=== PATIENT | male | born 1970 | race Hispanic/Latino ===

== ENCOUNTER 2018-03-18 19:01 | Emergency (ER) | payer MEDICARE, OTHER ==
[~2018-03-18 19:01] MED LIST: Iopamidol-M 200 41% 10 ML VIAL FS ONE
[2018-03-18 19:29] LABS: #Basophils 0.1 thou/uL (0.0-0.2); #Eosinphils 0.1 thou/uL (0.0-0.7); #Lymphocytes 3.3 thou/uL (1.20-3.40); #Monocytes 0.9 thou/uL (0.11-0.59); #Neutrophils 14.5 thou/uL (1.40-6.50); %Basophils 0.6 % (0.0-1.0); %Eosinophils 0.5 % (0.0-10.0); %Lymphocytes 17.3 % (21.0-51.0); %Monocytes 4.7 % (0.0-10.0); %Neutrophils 76.8 % (42.0-75.0); Hemoglobin 17.7 g/dL (14.0-18.0); Mean Corpuscular HGB CONC 32.3 g/dL (32.0-36.0); Mean Corpuscular Hemoglobin 31.2 pg (27.0-31.0); Mean Corpuscular Volume 96.7 fL (78.0-98.0); Mean Platelet Volume 9.5 fL (7.4-10.4); Platelet Count 138 thou/uL (130-400); RBC Distribution Width 13.1 % (11.5-14.5); Red Blood Cell (RBC) Count 5.66 mill/uL (4.70-6.10); White Blood Cell (WBC) Count 18.9 thou/uL (4.8-10.8)
[2018-03-18] MEDS ORDERED: Ondansetron PF 4 MG/2 ML Vial ONE (19:29)
[2018-03-18] MEDS ORDERED: Famotidine/PF 20 mg/2ml Vial ONE (19:38)
[2018-03-18] MEDS ORDERED: methylPREDNISolone Sod Succ/PF 125 MG/2 ML VIAL ONE (19:38)
[2018-03-18] MEDS ORDERED: diphenhydrAMINE 50 MG/ML VIAL ONE (19:38)
[2018-03-18 19:48] LABS: ALT (SGPT) 35 U/L (8-55); AST (SGOT) 55 U/L (5-34); Albumin 4.2 g/dL (3.5-5.0); Alkaline Phosphatase 70 U/L (40-150); Anion Gap 15 mmol/L (10-20); BUN (Urea Nitrogen) 17 mg/dL (8.9-20.6); Bilirubin, Total 0.7 mg/dL (0.2-1.2); Calc. Creatinine Clearance 0 mL/min (70-130); Calcium 8.9 mg/dL (7.8-10.44); Carbon Dioxide 19 mmol/L (22-29); Chloride 103 mmol/L (98-107); Estimated GFR-MDRD 64; Globulin 2.9 g/dL (2.4-3.5); Glucose 167 mg/dL (70-105); Lipase 21 U/L (8-78); Protein, Total 7.1 g/dL (6.0-8.3); Sodium 133 mmol/L (136-145)
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
[2018-03-18] MEDS ORDERED: Morphine 2 MG/ML SYRINGE ONE (21:07)
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
== END 2018-03-18 22:32 | disposition home or self-care (01) ==
LOC: ERS 19:01
DX: S32.019A Unspecified fracture of first lumbar vertebra, initial encounter for closed fracture (principal); V43.62XA Car passenger injured in collision with other type car in traffic accident, initial encounter
CPT/HCPCS: 36415; 70450; 71260; 72125; 74177; 80053; 83690; 85025; 86850; 86900; 86901; 96374; 96375; G0390; J1200; J2270; J2405; J2930; S0028

== ENCOUNTER 2018-12-12 13:44 | Inpatient (IN) | payer MEDICARE, OTHER, SELFPAY ==
--- NOTE | 2018-12-12 14:06 | RAD ---
AP CHEST: Date: 12/12/18 HISTORY: Chest pain. FINDINGS: Lungs appear clear of infiltrate. No evidence of vascular congestion or edema. Heart size is within n ormal range. Postop sternotomy changes noted. Mild interstitial prominence may be chronic. No signifi cant effusion. IMPRESSION: No acute abnormality identified. POS: [facility]
[2018-12-12 14:29] LABS: #Basophils 0.1 thou/uL (0.0-0.2); #Eosinphils 0.1 thou/uL (0.0-0.7); #Monocytes 0.8 thou/uL (0.11-0.59); %Basophils 1.3 % (0.0-1.0); %Eosinophils 0.5 % (0.0-10.0); %Neutrophils 60.2 % (42.0-75.0); Hemoglobin 17.8 g/dL (14.0-18.0); Mean Corpuscular HGB CONC 33.2 g/dL (32.0-36.0); Mean Corpuscular Hemoglobin 31.2 pg (27.0-31.0); Mean Corpuscular Volume 94.2 fL (78.0-98.0); Mean Platelet Volume 9.6 fL (7.4-10.4); Platelet Count 157 thou/uL (130-400)
[2018-12-12 14:52] LABS: ALT (SGPT) 17 U/L (8-55); AST (SGOT) 22 U/L (5-34); Albumin 4.2 g/dL (3.5-5.0); Alkaline Phosphatase 69 U/L (40-150); Anion Gap 12 mmol/L (10-20); BUN (Urea Nitrogen) 14 mg/dL (8.9-20.6); Bilirubin, Total 0.7 mg/dL (0.2-1.2); Calc. Creatinine Clearance 0 mL/min (70-130); Calcium 9.2 mg/dL (7.8-10.44); Carbon Dioxide 24 mmol/L (22-29); Chloride 108 mmol/L (98-107); Estimated GFR-MDRD Greater than 90; Globulin 2.5 g/dL (2.4-3.5); Glucose 93 mg/dL (70-105); Potassium 4.5 mmol/L (3.5-5.1); Protein, Total 6.7 g/dL (6.0-8.3); Sodium 139 mmol/L (136-145)
[2018-12-12 18:17] LABS: Troponin I Less than 0.010 ng/mL (< 0.028)
[2018-12-12] MEDS ORDERED: Ondansetron ODT 4 MG TAB SL PRN (19:48)
[2018-12-12] MEDS ORDERED: Ondansetron PF 4 MG/2 ML Vial IVP PRN (19:48)
[2018-12-12 19:49] VITALS: BMI 19.0
[2018-12-12] MEDS ORDERED: Aspirin 325 MG TAB PO SCH (20:00)
[2018-12-12] MEDS ORDERED: Acetaminophen 325 MG TAB PO PRN (20:33)
[2018-12-12] MEDS ORDERED: Nitroglycerin 0.4 MG TAB (25 Tab Bottle) PO PRN (20:33)
[2018-12-12 21:01] LABS: Troponin I Less than 0.010 ng/mL (< 0.028)
[2018-12-12] MEDS: Famotidine 20 MG TAB PO SCH (21:57)
--- NOTE | 2018-12-13 02:45 | HP ---
PRIMARY CARE PHYSICIAN: in [place]. CHIEF COMPLAINT: Left-sided chest pain and left arm numbness. HISTORY OF PRESENT ILLNESS: Mr. Christopher is a pleasant 48-year-old man with a history of CHF, who had presented to [facility] earlier today after he experienced some left-sided chest pain that had radiated down the left arm. He had also described this pain as a numbness, tingling and pins and needles down left arm. He states that the symptoms started around 6:00 a.m. this morning and had woken out of a deep sleep and it lasted roughly 1 hour. He had denied any fever, chills, any headache, blurred vision, dizziness, any palpitations, shortness of breath, abdominal pain, nausea, vomiting, or any change in stool. He states that these symptoms have been on and off for the last 2 weeks and states that it usually happens when he is sleeping. His serial troponins were found to be negative x3 and portable chest x-ray was clear. His blood pressure and other vital signs remained stable. He states that he is a very active man and he states that he is not on any home medications. He is supposed to take furosemide at home for his heart failure. However, he states he does not take this, labs indicated slightly bumped BNP of 216. REVIEW OF SYSTEMS: All other systems reviewed and found to be negative unless mentioned in the HPI. PAST MEDICAL HISTORY: Congestive heart failure. PAST SURGICAL HISTORY: Open heart surgery as a child. PSYCHIATRIC HISTORY: None. SOCIAL HISTORY: The patient denies any alcohol, tobacco, or illicit drug use. ALLERGIES: CODEINE AND SHELLFISH. CURRENT HOME MEDICATIONS: None. PHYSICAL EXAMINATION: VITAL SIGNS: BP 125/69, pulse 55, respirations 17, temperature 97.5 degrees Fahrenheit, O2 saturations 96% on room air. GENERAL: The patient is awake, alert, and oriented x3. He is currently lying comfortably in bed and in no acute distress. HEENT: Atraumatic, normocephalic. Pupils are round and reactive to light. Extraocular muscles intact. Moist mucous membranes noted. CARDIOVASCULAR: Positive S1 and S2. Regular rate and rhythm. No murmur auscultated. RESPIRATORY: Clear to auscultation bilaterally. No wheezes, rales, or rhonchi. ABDOMEN: Soft, nontender. Bowel sounds present. MUSCULOSKELETAL: Strength 5+ bilaterally in upper and lower extremities. Moves all extremities equal. No edema noted. NEUROLOGIC: Cranial nerves 2 through 12 grossly intact. No focal deficits noted. Speech intact and normal. Gait not assessed. SKIN: Warm, dry, and intact. No rashes. No ulceration noted. Surgical scar noted on the anterior chest, which is well healed. PSYCHIATRIC: Good mood and affect. LABORATORY DATA: WBC 10.0, RBC 5.70, hemoglobin 17.8, platelet 157. Sodium 139, potassium 4.5, anion gap 12, BUN 14, creatinine 0.84, estimated GFR greater than 90. Troponin less than 0.010 x3. BNP 216.0. DIAGNOSTIC IMAGING: Portable chest x-ray showed no acute abnormality identified. ASSESSMENT AND PLAN: 1. Atypical chest pain. The patient will rule out acute coronary syndrome, serial troponins found to be negative x3, and echocardiogram and cardiac stress test will be ordered for the morning. BNP is slightly bumped at 216. 2. History of congenital heart defect status post open heart surgery as a child, currently stable. 3. Deep venous thrombosis and gastrointestinal prophylaxis. 4. Code status is full code. DISPOSITION: Pending further workup and clinical findings. Job ID: [id number]
[2018-12-13 05:49] LABS: Anion Gap 10 mmol/L (10-20); BUN (Urea Nitrogen) 17 mg/dL (8.9-20.6); Calc. Creatinine Clearance 76 mL/min (70-130); Calcium 9.2 mg/dL (7.8-10.44); Carbon Dioxide 26 mmol/L (22-29); Chloride 107 mmol/L (98-107); Cholesterol 145 mg/dl (< 200 Desired); Estimated GFR-MDRD Greater than 90; Glucose 88 mg/dL (70-105); HDL Cholesterol 36 mg/dL (>60 Neg Risk); LDL Cholesterol, Calculated 91 mg/dL; Potassium 3.6 mmol/L (3.5-5.1); Sodium 139 mmol/L (136-145); Triglycerides 92 mg/dL (Less than 150)
[2018-12-13 05:55] LABS: Band 2 % (5-11); Lymphocytes 52 % (21-51); MDiff Complete? YES; Mean Corpuscular HGB CONC 32.9 g/dL (32.0-36.0); Mean Corpuscular Hemoglobin 31.4 pg (27.0-31.0); Mean Corpuscular Volume 95.4 fL (78.0-98.0); Mean Platelet Volume 9.9 fL (7.4-10.4); Monocytes 10 % (0-10); Neutrophil 36 % (42-75); Platelet Count 156 thou/uL (130-400); White Blood Cell (WBC) Count 9.6 thou/uL (4.8-10.8)
[2018-12-13] MEDS: Famotidine 20 MG TAB PO SCH (08:09)
[2018-12-13] MEDS ORDERED: Enoxaparin Sodium 40 MG/0.4 ML SYRINGE SC SCH (09:00)
[2018-12-13] MEDS ORDERED: Regadenoson 0.4 MG/5 ML SYRINGE ONE (09:57)
--- NOTE | 2018-12-13 12:04 | NM ---
EXAM: CARDIAC SPECT HISTORY: Chest pain, CHF TECHNIQUE: A myocardial perfusion scan was performed using the single isotope 1 day protocol with ricki hnetium 99m sestamibi. [10 mCi] was injected intravenously for the rest exam followed by 30 mCi for the stress study. Pharmacologic stress with Lexiscan was monitored and interpreted by Dr. Trejo FINDINGS: A large fixed defect is seen in the anteroseptal wall. No reversible defects are seen. Gated SPECT LVEF: 46% Wall motion exam: Anteroseptal wall hypokinesis IMPRESSION: 1. No evidence of reversible ischemia. 2. Anteroseptal wall scar.
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
--- NOTE | 2018-12-13 19:05 | PDOC.EVN ---
Event Note - Event Note Event Note: Mr. Christopher was seen together with Yesy Huff PA-C. He had some chest pain earlier, today as well as left arm pain. This has since resolved. He had some evidence on bradycardia on telemetry. Due to his history of congenital heart disease, and surgery for transposition of the great vessels, he is being transferred to [facility] for further evaluation. Accepting Physician is Dr. Khan.
[2018-12-13 20:14] VITALS: BP 115/72; TEMP 98.2
--- NOTE | 2018-12-13 21:26 | CON ---
DATE OF CONSULTATION: 12/13/2018 INDICATION FOR CONSULTATION: A 48-year-old gentleman, who complained of some left-sided chest discomfort, which he described as sharp sticking pains and also some left arm numbness. HISTORY OF PRESENT ILLNESS: This is a very pleasant 48-year-old gentleman, who has a history of congestive heart failure, which is mainly right-sided, presented to the emergency room yesterday after he complained of some sharp sticking pains, which woke him from sleep and some left-sided numbness. He said his arm was numb. He denied any tingling type sensations. He did not have any significant chest discomfort for what he tells me. He has not had any other complaints of nausea, vomiting, or shortness of breath. His cardiac enzymes are negative. He has a history of congenital heart disease, most likely transposition which has been repaired. His last echocardiogram was in 2017, which showed ejection fraction 50% to 55% with dilated right ventricle and right atrium with [id number] tricuspid valve regurgitation, bicuspid aortic valve, volume overload what appeared to be a transposition which had been repaired. He does apparently have a history of hypertension and according to the EKG also looks that way. When he was in the emergency room, he did have some bradycardia with heart rates in the 30s and appeared to be junctional rhythm, other times sinus at this time. He is in a sinus rhythm with a heart rate in the 60s and he is asymptomatic. He said his chest discomfort has resolved. The sticking sharp pains have resolved and also the numbness in his arm has resolved. His chest x-ray is unremarkable, and the cardiac enzymes are negative. EKG is noted for the junctional rhythm and also occasionally sinus rhythm, but heart rates in the 30s. PAST MEDICAL HISTORY: Significant for the congenital heart disease and congestive heart failure. He has had repair of the transposition when he was a child. ALLERGIES: NOT TO MEDICATIONS EXCEPT FOR CODEINE. HE SAYS HE HAS INTOLERANCE TO CODEINE. HE ALSO HAS ALLERGIES TO SHELLFISH. MEDICATIONS: At home he said include pain pills due to back problems and also Lasix. REVIEW OF SYSTEMS: He denied any other complaints. He lives alone. He does not work. He is disabled. I guess based on his heart function, he has not been taking any medicines at home and apparently follow up with Dr. Lopez several months ago and said that he was doing okay at that time. A 12-point review of systems unremarkable except as noted in the history of present illness. PHYSICAL EXAMINATION: GENERAL: Reveals a well-developed, well-nourished gentleman, who is in no acute distress at this time. VITAL SIGNS: Blood pressure is 120/71, heart rate is 62 and regular, and respiratory rate 14. He is afebrile. HEENT: Shows head to be normocephalic and atraumatic. Carotid pulses are present. There are no bruits. CHEST: Clear to auscultation without rales, rhonchi, or wheezing. CARDIOVASCULAR: Reveals a regular rate and rhythm. He has a systolic murmur at the lower sternal border and also at the apex compatible with tricuspid and mitral valve regurgitation. ABDOMEN: Soft and nontender. Positive bowel sounds are present. EXTREMITIES: Show no clubbing, cyanosis, or edema. Pedal pulses are present. NEUROLOGIC: The patient appears to be intact. SKIN: Warm and dry. LABORATORY DATA: Shows a hemoglobin of 16, hematocrit was 48.6, WBC of 9.6, platelet count of 156,000. Potassium is 3.6, sodium 139, BUN is 17, creatinine 0.78, and blood sugar was 88. Cardiac enzymes are negative. LDL was 91, HDL was 36, and triglycerides are 92. EKG is noted above with a junctional rhythm, heart rate in the 30s and also sinus bradycardia, heart rates in the 30s with T-wave inversions and evidence of right ventricular hypertrophy. Chest x-ray was unremarkable for any acute problems or abnormalities. IMPRESSION: 1. Atypical chest discomfort. Cardiac enzymes are negative. It is unlikely that this is related to his heart. Most likely, sharp pains and also left arm tingling and most likely noncardiac. He does sleep on his left side and this may be the etiology of this. His BNP was slightly elevated. 2. History of congenital heart disease, which apparently has been repaired as a child and most likely appeared to be transposition. 3. Bradycardia, which is he may eventually require pacemaker insertion, but he said he was asymptomatic. He was unaware that his heart rate was slow. He has not had any syncope or presyncopal episodes. We will leave this up to the discretion of Dr. Lopez when he visits with the patient tomorrow, but at this time the heart rates in the 60s and the patient is very comfortable. Further workup will depend on evaluation, may need to repeat his echocardiogram. If he has not had one recently, we will determine whether he has had one in the office or not. If not, we will order an echocardiogram since his last echocardiogram was in 2017. He did have a stress test, which showed an anteroseptal scar with ejection fraction about 40%. This was performed today and without any difficulties or complications. We will continue a low dose for DVT prophylaxis of Lovenox at this time. His medicines since being admitted to the hospital include aspirin, Lovenox, Pepcid, nitroglycerin, Tylenol, Zofran, and other p.r.n. medications. He is comfortable at this time. We will continue to observe him. If he has further episodes of bradycardia, may need to undergo pacemaker insertion. He may also need to undergo a cardiac catheterization with the anteroseptal scar with 40% ejection fraction. We will try to verify this by echocardiogram to see if his ejection fraction appears to be normal and his EKG does not appear that he has had an anteroseptal myocardial infarction, does not have any Q-waves in those areas. Job ID: [id number]
== END 2018-12-13 20:26 | disposition short-term general hospital (02) | DRG 313 ==
LOC: ERS 13:44 → 2SW 16:45 → OBSVTOIN 16:45
PROVIDERS: ADMIT Internal Medicine; ATTEND Internal Medicine
DX: R07.89 Other chest pain (principal); I50.9 Heart failure, unspecified; R00.1 Bradycardia, unspecified; Z98.890 Other specified postprocedural states; Z88.2 Allergy status to sulfonamides; Z91.013 Allergy to seafood
CPT/HCPCS: 36415; 71045; 78452; 80048; 80053; 80061; 83735; 83880; 84484; 85025; 93005; 93010; 93017; 93306; 94760; A9500; J1650; J2785